=== PATIENT | male | born 1970 | race Two or more races ===

== ENCOUNTER 2017-09-30 10:45 | Emergency (ER) | payer OTHER ==
[2017-09-30] MEDS ORDERED: Sodium Chloride 0.9% 1,000 ML IV SCH (11:00)
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
[2017-09-30 11:36] LABS: ACETAMINOPHEN < 10; ANION GAP 17.5; CHLORIDE,CL 103 mmol/L (101-111); SODIUM,NA 137 mmol/L (135-145)
[2017-09-30] MEDS ORDERED: LORazepam 2 MG/ML Syringe IVPUSH ONE (14:46)
== END 2017-09-30 15:06 | disposition home or self-care (01) ==
LOC: EDBD → DL.ED 10:45
DX: F43.10 Post-traumatic stress disorder, unspecified (principal); F15.90 Other stimulant use, unspecified, uncomplicated
CPT/HCPCS: 36415; 80053; 80305; 81001; 82150; 82962; 83690; 83735; 85025; 96365; 96375; 99283; G0480; J2060; J7030

== ENCOUNTER 2017-10-01 15:19 | Emergency (ER) | payer OTHER ==
[2017-10-01] MEDS ORDERED: Gabapentin 300 MG Cap PO ONE (15:20)
[2017-10-01] MEDS ORDERED: LORazepam 1 MG Tab PO ONE (15:20)
[2017-10-01] MEDS ORDERED: LORazepam 1 MG Tab ONE (17:41)
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
[2017-10-01] MEDS ORDERED: Gabapentin 300 MG Cap ONE (17:47)
== END 2017-10-01 17:55 | disposition home or self-care (01) ==
LOC: DL.ED 15:19
DX: F15.980 Other stimulant use, unspecified with stimulant-induced anxiety disorder (principal); F43.10 Post-traumatic stress disorder, unspecified; F17.210 Nicotine dependence, cigarettes, uncomplicated
CPT/HCPCS: 99283; A9270-GY